=== PATIENT | female | born 1930 | race Caucasian/White ===

== ENCOUNTER → 2017-08-13 | Emergency (ER) | payer OTHER ==
[~2017-08-13] VITALS: Ht 157.5 cm; Wt 45.4 kg
[~2017-08-13] MED LIST: ADULT ASPIRIN81 MG; CARVEDILOL12.5 MG; DIGOX125 MCG; LASIX20 MG
== END | disposition home or self-care (01) ==
LOC: ER 14:55
DX: J90 Pleural effusion, not elsewhere classified (principal)

== ENCOUNTER 2018-09-29 13:25 | Emergency (ER) | payer OTHER ==
[~2018-09-29] VITALS: Ht 157.5 cm; Wt 46.7 kg
[2018-09-29] MEDS ORDERED: LOSARTAN POTASS50 MG (13:42)
== END 2018-09-29 18:49 | disposition home or self-care (01) ==
LOC: ER 13:25
DX: L30.4 Erythema intertrigo (principal); J90 Pleural effusion, not elsewhere classified; I51.89 Other ill-defined heart diseases